=== PATIENT | female | born 1985 | race Caucasian/White ===

== ENCOUNTER 2017-10-15 08:45 | Emergency (ER) | payer OTHER ==
[2017-10-15] MEDS: HYDROCODONE/APAP (5/325) TAB PO (10:04)
== END 2017-10-15 10:17 | disposition home or self-care (01) ==
LOC: FTE 08:45
DX: K08.89 Other specified disorders of teeth and supporting structures (principal); I10 Essential (primary) hypertension; F17.210 Nicotine dependence, cigarettes, uncomplicated
CPT/HCPCS: 93005; 99284

== ENCOUNTER 2018-01-05 16:50 | Emergency (ER) | payer OTHER ==
[2018-01-05] MEDS: SOD CHLORIDE 0.9% 500 ML IV (17:34)
[2018-01-05] MEDS: METOCLOPRAMIDE 10 MG INJ IV (17:35)
[2018-01-05] MEDS: DIPHENHYDRAMINE 50 MG INJ IV (17:35)
[2018-01-05 18:01] LABS: WHITE BLOOD COUNT 11.8 10^3/ul (4.8-10.8)
[2018-01-05 18:01] LABS: ADD MAN DIFF? NO; BASOPHIL # 0.1 10^3/ul (0.0-0.1); BASOPHILS % 0.6 % (0.0-2.0); EOSINOPHILS # 0.1 10^3/ul (0.0-0.5); EOSINOPHILS % 0.8 % (0.0-7.0); HEMATOCRIT 41.2 % (37.0-47.0); LYMPHOCYTES # 3.9 10^3/ul (0.8-2.9); LYMPHOCYTES % 33.1 % (15.0-51.0); MEAN CORPUSCULAR HEMOGLOBIN 32.3 pg (29.0-33.0); MEAN CORPUSCULAR VOLUME 95.2 fl (82.0-101.0); MEAN PLATELET VOLUME 10.9 fl (7.4-10.4); MONOCYTE # 0.7 10^3/ul (0.3-0.9); MONOCYTES % 5.9 % (0.0-11.0); NEUTROPHILS % 59.2 % (39.0-77.0); PLATELET COUNT 350 10^3/UL (140-415); RED BLOOD COUNT 4.33 10^6/ul (4.20-5.40); RED CELL DISTRIBUTION WIDTH 12.3 % (11.5-14.5)
[2018-01-05] MEDS: KETOROLAC 15 MG INJ IV (19:18)
== END 2018-01-05 19:52 | disposition home or self-care (01) ==
LOC: FTE 16:50
DX: R51 Headache (principal); I10 Essential (primary) hypertension
CPT/HCPCS: 70450; 81025; 85025; 96361; 96374; 96375; 99285-25